=== PATIENT | male | born 1960 | race Hispanic/Latino ===

== ENCOUNTER 2021-11-28 07:24 | Outpatient (CLI) | payer OTHER | END 2021-11-28 07:25 | disposition home or self-care (01) | LOC: RAD-FRANK 07:24 | PROVIDERS: ATTEND Family Medicine | DX: M54.50 Low back pain, unspecified (principal); M47.816 Spondylosis without myelopathy or radiculopathy, lumbar region | CPT/HCPCS: 72100 ==